=== PATIENT | male | born 1955 | race Caucasian/White ===

== ENCOUNTER 2024-10-09 05:53 | Day surgery (SDC) | payer MEDICARE, SELFPAY ==
[2024-10-03 07:28] VITALS: BMI 31.6
[2024-10-09] VITALS (17 sets, daily range): BP systolic 108–173; BP diastolic 73–151; PULSE 80–95; RESP 12–17; TEMP 36.1–36.5; O2SAT 92–98; BMI 31.6
--- NOTE | 2024-10-09 06:00 | DI.RAD.S_ITS ---
PROCEDURE: XR KNEE RT 1TO2V INDICATIONS: TKA TECHNIQUE: 2 view(s) of the knee acquired. [facility], XR KNEE ARTHRITIC SERIES BI, 09/19/2024, 9:18. FINDINGS: Bones: Expected postsurgical appearance of the knee arthroplasty. Soft tissues: Soft tissue swelling and edema. Patellar enthesopathy. Vascular calcifications IMPRESSION: Expected post-operative appearance of a knee arthroplasty. Dictated by: Luis You M.D. on 10/09/2024 at 12:52 Approved by: Luis You M.D. on 10/09/2024 at 12:53
[2024-10-09] MEDS: ACETAMINOPHEN 325 MG TABLET 975 MG PO (07:23)
[2024-10-09] MEDS: VANCOMYCIN 1,000 MG/200 ML PIGGYBACK 200 MG IV (07:23)
[2024-10-09] MEDS: CELECOXIB 200 MG CAPSULE 400 MG PO (07:23)
[2024-10-09] MEDS: LACTATED RINGERS 1,000 ML 42 ML IV ×2 (07:24→09:51)
--- NOTE | 2024-10-09 07:28 | PM.PREOP ---
Pre-operative Note Interval Note History & Physical reviewed/Exam performed by Physician: Yes Changes to H&P: No
[2024-10-09] MEDS: CEFAZOLIN 2 GM/100 ML PREMIX 100 ML IV ×2 (08:05→14:45)
[2024-10-09] MEDS: TRANEXAMIC ACID 1,000 MG VIAL 1000 MG INJ ×2 (08:14→10:07)
[2024-10-09] MEDS: BUPIVACAINE LIPOSOME 266 MG/20 ML VIAL INJ (08:31)
[2024-10-09] MEDS: BUPIVACAINE 0.25% W/ EPI 30 ML VIAL 60 ML INJ (08:49)
--- NOTE | 2024-10-09 10:47 | PM.OP.1 ---
Operative Date/Time/Diagnoses Date of procedure: 10/09/24 Time of procedure: 08:00 Pre-op diagnosis: Right knee OA Post-op diagnosis: same Procedure & Clinicians Procedure: Right total knee arthroplasty Same procedure as scheduled: Yes Indications: The patient has had progressively worsening right knee pain with radiographic changes consistent with arthritis. Non-operative management has failed and the patient has requested total knee replacement. The risks, benefits and alternatives to surgery were discussed with the patient prior to proceeding. Risks discussed included, but were not limited to, failure to relieve pain, stiffness, infection, nerve damage, deep venous thrombosis, pulmonary embolism, stroke, coma, heart attack, permanent paralysis and , as well as the potential need for eventual revision of the prosthetic. Surgeon: Jessica Miranda Cost Control Specialist: Kimberlee Duncan Anesthesia Type: General, Spinal and Peripheral nerve block Operative Notes Findings: Severe right knee osteoarthritis, adequate stability, adequate bone Closure Type: primary Specimen(s): none sent Prosthetic devices, grafts, tissues, transplants, or devices: Miranda and nephew alfred BCs us to size 8 femur, size 8 tibia, 38 mm oval patella, size 9 poly Estimated Blood Loss (mL): 250 Blood products transfused: none Tourniquet time (min): 106 Procedure in detail: The patient was seen in the pre-operative area, where the patient identified the right knee as the operative site and this was marked with my initials. The patient received pre-operative antibiotics, and was taken to the operating room and placed on the operative table in the supine position. After satisfactory anesthesia, a time analysis clerk out was performed. The right leg was encircled with a tourniquet about the proximal thigh, and the leg was prepared from the toes to the tourniquet with ChloroPrep in the usual fashion and draped through sterile drapes. The leg was elevated and exsanguinated with Eschmark bandage and the tourniquet inflated to [250] mmHg pressure. A PA was used during this procedure was essential for intraoperative retraction safe implantation of the components. The knee was approached through an approximately 18 cm incision centered over the patella and carried into the knee through a medial parapatellar arthrotomy. A portion of the medial and lateral meniscus was resected. Soft tissue was carefully mobilized around the patella the patella was measured with a caliper. Bone was resected from the patella and the patellar height was reconstituted with up an appropriate sized patellar component. A cover was then placed on the patella. A small amount of additional medial and lateral meniscus was resected. The patient was seen in the pre-operative area, where the patient identified the right knee as the operative site and this was marked with my initials. The patient received pre-operative antibiotics, and was taken to the operating room and placed on the operative table in the supine position. After satisfactory anesthesia, a time analysis clerk out? was performed. The right leg was encircled with a tourniquet about the proximal thigh, and the leg was prepared from the toes to the tourniquet with ChloroPrep in the usual fashion and draped through sterile drapes. The leg was elevated and exsanguinated with Eschmark bandage and the tourniquet inflated to [250] mmHg pressure. Albert pins were placed for navigation on the femur. The adjustable tibial guide for navigation was placed. A plan was carefully taken and optimize to allow full motion and good stability throughout full range motion. The Cori robotic bur was used for the distal femoral resection. It looked like an appropriate distal femoral cut and the cut was made without difficulty. The rotation was assessed and the appropriate size femoral guide was placed on the distal femur and finishing cuts were made. There was no evidence of notching. The anterior, posterior and chamfer cuts were then made. The posterior osteophytes and soft tissues were then removed. The posterior capsule was injected with part of a mixture of 60 ml 0.25% Marcaine mixed with 266 mG Exparel for post operative pain control. The remainder of this mixture was injected into the capsule and subcutaneous tissues during cement curing. The tibial guide was meticulously navigated with robotic technique. A proximal tibial cut was made without difficulty. The rotation was assessed. The patient was placed in extension residual medial and lateral meniscus as well as any residual bone was carefully resected. [No] additional tibia was resected. Hemostasis was achieved especially posteriorly. Additional local was injected into the posterior capsule. The extension gap was assessed. The femoral component was trial was placed and the notch was finished. Trial tibial and femoral components were then placed and the knee placed through a range of motion. Range of motion was [0-130], with good stability throughout the range. The trials were then removed, and the tibia was finished. The bone was prepared with pulsatile lavage, and dried with a sponge. Cement was applied and the final prosthetics placed. Excess cement was removed during and after cement curing. A brief Betadine soak was performed. After confirming there was no extruded cement posteriorly, the final tibial insert was placed. The knee was copiously irrigated and the tourniquet deflated. Hemostasis was obtained with the Bovie cautery. The capsule was closed with interrupted # 1 Vicryl suture. The subcutaneous layer was closed with barbed sutures, and the skin with a running 3-0 V-Lock suture and Surgical glue. An Aquacel Ag dressing was applied and the patient was taken to recovery having tolerated the procedure well. Complications: none Post-operative Condition: stable Disposition: Acute Care Plan for aftercare: The patient will be maintained on a standard total knee replacement protocol with weight bearing as tolerated. The patient will receive aspirin and sequential compression devices for DVT prophylaxis. The patient will be discharged home when safe for the home environment.
[2024-10-09] MEDS: LACTATED RINGERS 1,000 ML 100 ML IV ×2 (12:55→14:45)
--- NOTE | 2024-10-09 13:34 | PT.IIE ---
Current Diagnoses Unilateral primary osteoarthritis, right knee (10/09/24) Surgery Performed Operation Date: 10/09/24 07:45 Actual Procedures p Total Knee Arthroplasty - Robot(Right) - Jessica Miranda MD Surgical History (Last Updated 10/03/24 @ 07:44 by Cheri Kimbrough, RN) History of colonoscopy (11/12/19) History of esophagogastroduodenoscopy (EGD) (07/21/20) History of orthopedic surgery (02/2018) Hx of cardiac cath (04/04/24) Hx of cardiac cath (06/2014) Medical History (Last Updated 10/03/24 @ 07:44 by Cheri Kimbrough, RN) Amputation toe (10/06/22) Atherosclerotic heart disease Diabetes HLD (hyperlipidemia) HTN (hypertension) Myocardial infarct Neuropathy PAD (peripheral artery disease) Retinopathy Rheumatoid arthritis Vertigo, intermittent Physical Therapy Inpatient Evaluation/Re-Eval M1 PT/OT-IP Prior Functional Status Start: 10/09/24 12:56 Freq: NEEDED Status: Active Protocol: Document 10/09/24 12:56 MB (Rec: 10/09/24 13:33 MB [id number]) Medical Review Prior Functional Status Medical History Reviewed Yes Diet/Fluid Consistency Regular Communication WNLs Mobility and Gait I, works doing ground maintenance Activities of Daily Living and IADL's I Social History Household Members spouse Living Arrangements House Number of Floors (Floors) Two Floors Number of Stairs To Enter/Railing? 3 steps with B rails to enter Home Environment Standard Height Toilet,Walk in Shower Home Equipment Hand Held Shower Employment Status Self-Employed Additional Social History Comment Upright walker History of B peripheral neuropathy, left great toe amputation M2 PT-IP Current Condition Start: 10/09/24 12:56 Freq: NEEDED Status: Active Protocol: Document 10/09/24 12:56 MB (Rec: 10/09/24 13:33 MB [id number]) Physical Therapy Current Condition Current Condition Evaluation Date 10/09/24 Treatment Diagnosis R TKA M3 PT-IP Subjective Start: 10/09/24 12:56 Freq: NEEDED Status: Active Protocol: Document 10/09/24 12:56 MB (Rec: 10/09/24 13:33 MB [id number]) Subjective Physical Therapy Visit Type Type Initial Evaluation Visit Start Time 12:56 Visit Stop Time 13:19 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 Pt has OPPT set up for one week from today. Therapy Pain Assessment Pain When Pain Assessed At Rest Pain Present Pain Present Pain Reported Location Right knee Intensity 5 Scale Used Numeric (0 - 10) M4 PT-IP Mobility and Gait Start: 10/09/24 12:56 Freq: NEEDED Status: Active Protocol: Document 10/09/24 12:56 MB (Rec: 10/09/24 13:33 MB [id number]) PT-Bed Mobility Assessment Rolling Type of Rolling Roll to Right,Roll to Left Level of Assist Contact Guard Assistance,1 Person Assistance Supine to Sit Supine to Sit Contact Guard Assistance,1 Person Assistance,Head of Bed Elevated,Bedrails Sit to Supine Sit to Supine Contact Guard Assistance,1 Person Assistance Scooting Scooting to Edge of Bed Contact Guard Assistance PT-Transfer Assessment Sit to and From Stand Sit to and from Stand Moderate Assistance,1 Person Assistance,Use of Upper Extremities Equipment Transfer Assistive Device Gait Belt,Front Wheeled Walker Orthotic/Prosthetic Devices or Brace: No Transfers Transfer Destination Bed Transfer Technique Right side step Transfer Ability Level of Assist Moderate Assistance,1 Person Assistance,Use of Upper Extremities Comments Mobility Comments Right leg mildly seth, is not reliable when standing first attempt and pt eases WB onto the leg. BP and HR left UE: hook lying 122/84, 91; standing 105/74 (HR does stay on monitor); standing 1' 119/ 83, 102 Gait Assessment Gait Gait Assistance Required: Moderate Assistance Distance (Feet) 2 Able to Maintain Weight Bearing Status Yes During Gait Assistive Devices Assistive Device Gait Belt,Front Wheeled Walker Orthotic/Prosthetic Devices or Brace: No Gait Deviations General Gait Pattern Antalgic,Decreased Stride Length,Decreased Feet Clearance,Flexed Trunk,Step-to Gait,Wide Based Gait Factors Limiting Gait Function Factors Limiting Gait Function Decreased Activity Tolerance, Decreased Sensation,Decreased Strength,Difficulty Following Directions,Incoordination, Limited Range of Motion,Pain, Poor Balance,Poor Safety Awareness Comments Gait Comments 4 right side steps and 2 forward steps and 2 backwards steps with cues for step-to given right LE unreliable and mod A PT-Balance Assessment Sitting Balance and Reactions Static Sitting Balance Ability Good Dynamic Sitting Balance Ability Fair Standing Balance and Reactions Static Standing Balance Ability Poor Dynamic Standing Balance Ability Poor Device Used RW M5 PT-IP Objective Assessments Start: 10/09/24 12:56 Freq: NEEDED Status: Active Protocol: Document 10/09/24 12:56 MB (Rec: 10/09/24 13:33 [id number]) Orientation Orientation/Cognition Level of Alertness Lethargic Orientation Name,Age,Birthday,Month,Date, Year,Day of Week,Place, Situation Language Function Ability No Deficits Noted Safety Awareness Decreased Safety Awareness Memory Description No Deficits Noted Gross Range of Motion Upper Extremity ROM Assessment Within Functional Limits Lower Extremity ROM Assessment Right Impaired Impairments Right knee extension lacks 10 deg with LAQ sitting EOB Strength Lower Extremity Strength Assessment Right Impaired Comments Strength Comments Pt does not have good sensation in B LEs and trouble with sensory and MMT post-op, right knee appears to be 2+ to 3-/5 with LAQ Coordination Assessment Gross Coordination Gross Coordination Impaired Sensation Assessment Sensation Gross Sensation Right LE Impaired,Left LE Impaired M6 PT-IP Treatment Start: 10/09/24 12:56 Freq: NEEDED Status: Active Protocol: Document 10/09/24 12:56 MB (Rec: 10/09/24 13:33 [id number]) Physical Therapy Treatment Exercises Exercises Ankle Pumps,Gluteal Sets,Quad Sets,Heel Slides Education Education Provided Precautions,Weight Bearing Status,Post-Op Packet,Safety Other Treatments Other Treatment Performed Demo progression to normal gait with walker and to work on normalizing gait with RW over the next week and can advance further with OPPT M7 PT-IP Assessment and Plan Start: 10/09/24 12:56 Freq: NEEDED Status: Active Protocol: Document 10/09/24 12:56 MB (Rec: 10/09/24 13:33 [id number]) PT Summary Assessment and Plan Potential Rehabilitation Potential Good Status of Condition at Evaluation Evolving Summary Impairments Pain,ROM,Strength,Balance, Coordination,Sensation,Bed Mobility,Transfers,Gait, Activity Tolerance Progress Towards Goals Progressing Toward Goals Assessment Summary Pt is a 68 y/o male same day right TKR. Pt presents with some lethargy on assessment. He states he cannot tell if he has sensation or not in his legs given baseline diabetic neuropathy. He has history of left partial great toe amputation. He has active right knee extension sitting EOB and grossly 2+ to 3-/5 strength in right knee extensors in sitting. Left knee is normal as far as knee extension. Upon standing, the right leg does tend to buckle. Limited stepping as a result and pt requires mod A for transfer and stepping. His systolic BP drops 17 mmHg hook lying to standing. Encouraged pt to take a nap and can try PT again later this afternoon. He hopes to go home today but he will need to be more I and safe to be managed safely by and he has 3 steps with B rails to enter. Goals Bed Mobility Goal Independent Transfer Goal Independent,Front Wheeled Walker Gait Goal Independent,Front Wheel Walker Gait Distance 100 Other Goals Pt will ascend and descend 3 steps with B rails and no more than CGA to allow safe home entrance. Days to Meet Goals 3 Frequency of Treatment Frequency Of Treatment Twice a Day Other frequency x1-2 Treatment Plan Physical Therapy Treatment Plan Bed Mobility Training,Transfer Training,Gait Training, Therapeutic Exercise,Balance Retraining,Post Op Education, Discharge Planning,Hot or Cold Pack,Neuromuscular Re-ed, Coordination Retraining,Manual Therapy Other Recommendations and Next Treatment Progress gait and try steps Focus Weight Bearing Status Weight Bearing Status Weight Bear as Tolerated Recommendations To Nursing Amount of Assist Needed 2 Person Assist Discharge Recommendations PT Discharge Recommendations Home with 26/03 Assist Available,Outpatient PT Transportation Needs at Discharge Private Vehicle
[2024-10-09 14:25] LABS: Hematocrit 43.8 % (41-53); Hemoglobin 14.3 g/dL (13.5-17.5)
[2024-10-09] MEDS: ACETAMINOPHEN 325 MG TABLET 650 MG PO (14:52)
[2024-10-09] MEDS: OXYCODONE IR 5 MG TABLET PO (14:52)
--- NOTE | 2024-10-09 15:25 | OT.IP.EVAL ---
Current Diagnoses Unilateral primary osteoarthritis, right knee (10/09/24) Surgery Performed Operation Date: 10/09/24 07:45 Actual Procedures p Total Knee Arthroplasty - Robot(Right) - Jessica Miranda MD Past Medical History (Last Updated 10/03/24 @ 07:44 by Cheri Kimbrough, RN) Amputation toe (10/06/22) Atherosclerotic heart disease Diabetes HLD (hyperlipidemia) HTN (hypertension) Myocardial infarct Neuropathy PAD (peripheral artery disease) Retinopathy Rheumatoid arthritis Vertigo, intermittent Surgical History (Last Updated 10/03/24 @ 07:44 by Cheri Kimbrough, RN) History of colonoscopy (11/12/19) History of esophagogastroduodenoscopy (EGD) (07/21/20) History of orthopedic surgery (02/2018) Hx of cardiac cath (04/04/24) Hx of cardiac cath (06/2014) Occupational Therapy Inpatient Evaluation/Re-Eval M1 PT/OT-IP Prior Functional Status Start: 10/09/24 12:56 Freq: NEEDED Status: Active Protocol: Document 10/09/24 15:36 [facility] (Rec: 10/09/24 15:50 [facility] [id number]) Medical Review Prior Functional Status Medical History Reviewed Yes Diet/Fluid Consistency Regular Communication WNLs Mobility and Gait I, works doing ground maintenance Activities of Daily Living and IADL's I Social History Household Members spouse Living Arrangements House Number of Floors (Floors) Two Floors Number of Stairs To Enter/Railing? 3 steps with B rails to enter Home Environment Standard Height Toilet,Walk in Shower Home Equipment Hand Held Shower Employment Status Self-Employed Additional Social History Comment Upright walker History of B peripheral neuropathy, left great toe amputation M2 OT-IP Current Condition Start: 10/09/24 15:36 Freq: Status: Active Protocol: Document 10/09/24 15:36 [facility] (Rec: 10/09/24 15:50 [facility] [id number]) Occupational Therapy Current Condition Current Condition Evaluation Date 10/09/24 Treatment Diagnosis S/P R TKA Diagnosis Onset Date 10/09/24 Weight Bearing Status Weight Bearing Status Weight Bear as Tolerated M3 OT- IP Subjective and Pain Start: 10/09/24 15:36 Freq: Status: Active Protocol: Document 10/09/24 15:36 [facility] (Rec: 10/09/24 15:50 [facility] [id number]) OT- Subjective Occupational Therapy Visit Type Type Initial Evaluation Visit Start Time 14:50 Visit Stop Time 15:25 Occupational Therapy Visit Comments Patient Comments Pt agreed to get up and get dressed. Patient/Caregiver Goals TO go home. OT Pain Assessment Pain When Pain Assessed At Rest Pain Present Pain Present Denied Pain M4 OT- IP ADL's Start: 10/09/24 15:36 Freq: Status: Active Protocol: Document 10/09/24 15:36 [facility] (Rec: 10/09/24 15:50 [facility] [id number]) OT [id number] Comments OT Self-Feeding Comments Not at meal time. OT ADL-Grooming Comments OT Grooming Comments NO issues anticipated. OT ADL-Dressing General Eval Upper Body Dressing Ability Independent Lower Body Dressing Ability Minimal Assistance Comments OT Dressing Comments Educated to dress the RLE first and take out last. OT ADL-Toileting Comments OT Toileting Comments Suggested to use the urinal if needed or ask his to be present to assist. Pt states to sleep in the recliner initially. OT ADL-Bathing Comments OT Bathing Comments Suggested to get a shower chair. M5 OT- IP IADL's Start: 10/09/24 15:36 Freq: Status: Active Protocol: Document 10/09/24 15:36 [facility] (Rec: 10/09/24 15:50 [facility] [id number]) OT-Instrumental Activities of Daily Living Home Safety Awareness Awareness of Need for Assistance at Home Good Awareness Ability to Problem Solve Emergency Able to Problem Solve Situations Medication Management Medication Management No Deficits Identified Money Management Money Management No Deficits Identified Meal Preparation Meal Preparation Comments Pt's to assist. 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 M6 OT- IP Functional Cognition Start: 10/09/24 15:36 Freq: Status: Active Protocol: Document 10/09/24 15:36 [facility] (Rec: 10/09/24 15:50 [facility] [id number]) Cognitive Factors Limiting Selfcare Function Cognitive Ability Level of Alertness Alert Patient Orientation Name,Age,Birthday,Month,Date, Year,Day of Week,Place, Situation Attention Span Ability Capable of Focused Attention, Capable of Sustained Attention Ability to Follow Commands Able to Follow One Step Commands Cognitive Comments Cognitive Assessment Comments Pt able to follow commands for ADL and mobility needs. OT- Vision and Hearing OT- Hearing Assessment OT- Hearing Assessment WFL OT- Vision Assessment Visual Acuity Glasses All The Time Visual Attentiveness WFL Occular Pursuits WFL M7 OT- IP Mobility and Balance Start: 10/09/24 15:36 Freq: Status: Active Protocol: Document 10/09/24 15:36 [facility] (Rec: 10/09/24 15:50 [facility] [id number]) OT- Bed Mobility Assessment Supine to Sit Supine to Sit Assist Standby Assistance Sit to Supine Sit to Supine Assist Standby Assistance OT-Transfer Assessment Sit to and From Stand Sit to and from Stand Minimal Assistance Transfers Transfer Ability Minimal Assistance Technique Transfer Destination Bed,Chair Transfer Technique Stand Step Pivot Devices Transfer Assistive Devices Gait Belt,Front Wheeled Walker Comments Mobility Comments SBA for bed mobility and MADI to stand to the FWW. MADI and vc to tighten his right quads . Pt's able to assist pt for transfer needs and able to walk to the bathroom and then to the recliner. BP supine 114 /77, sitting 124/73, standing 121/80 OT- Balance Assessment Sitting Balance and Reactions Static Sitting Balance Ability Normal Dynamic Sitting Balance Ability Normal Standing Balance and Reactions Static Standing Balance Ability Good Dynamic Standing Balance Ability Fair M8 OT- IP Objective Assessments Start: 10/09/24 15:36 Freq: Status: Active Protocol: Document 10/09/24 15:36 [facility] (Rec: 10/09/24 15:50 [facility] [id number]) OT Gross Range of Motion Upper Extremity Range of Motion Assessment Within Functional Limits OT Strength Upper Extremity Strength Assessment Within Functional Limits M9 OT- IP Assessment and Plan Start: 10/09/24 15:36 Freq: Status: Active Protocol: Document 10/09/24 15:36 [facility] (Rec: 10/09/24 15:50 [facility] [id number]) OT Summary Assessment and Plan Potential Rehabilitation Potential Excellent Analytic Complexity at Evaluation Low Summary OT Impairments Pain,Strength,Balance, Functional Mobility,Dressing, Toileting,Bathing,Toilet Transfers,Shower Transfers Progress Towards Goals Progressing Toward Goals Assessment Summary Pt low complexity and main barriers are steps and still a little weakness from just having surgery this morning. Pt to go home with to assist and have outpt PT. Goals Grooming Goal Independent Dressing Goal Minimal Assistance Toileting Goal Independent Bathing Goal Standby Assistance Toilet Transfer Goal Independent Shower Transfer Goal Contact Guard Assistance Days to Meet Goals 2 Frequency of Treatment Frequency Of Treatment Once a Day Treatment Plan OT Treatment Plan ADL Training,Functional Mobility,Patient/Family Education,Discharge Planning Discharge Recommendations OT Discharge Recommendations Home with Assistance, Outpatient PT Home Equipment Needs shower chair Transportation Needs at Discharge Private Vehicle
--- NOTE | 2024-10-09 15:50 | PT.IPTN ---
Current Diagnoses Unilateral primary osteoarthritis, right knee (10/09/24) Surgery Performed Operation Date: 10/09/24 07:45 Actual Procedures p Total Knee Arthroplasty - Robot(Right) - Jessica Miranda MD Physical Therapy Treatment Note M2 PT-IP Current Condition Start: 10/09/24 12:56 Freq: NEEDED Status: Active Protocol: Document 10/09/24 12:56 MB (Rec: 10/09/24 13:33 MB [id number]) Physical Therapy Current Condition Current Condition Evaluation Date 10/09/24 Treatment Diagnosis R TKA M3 PT-IP Subjective Start: 10/09/24 12:56 Freq: NEEDED Status: Active Protocol: Document 10/09/24 15:25 NM (Rec: 10/09/24 16:16 NM [id number]) Subjective Physical Therapy Visit Type Type Treatment Note Visit Start Time 15:25 Visit Stop Time 15:50 Physical Therapy Visit Comments Patient Comments Pt agrees to participate in PT this afternoon. present, OT present in room. Pt ambulating with OT and , attempting to go to restroom. BP 121/84 mmHg Therapy Pain Assessment Pain When Pain Assessed During Mobility Pain Present Pain Present Pain Reported Location Right knee Intensity 2 Scale Used Numeric (0 - 10) M4 PT-IP Mobility and Gait Start: 10/09/24 12:56 Freq: NEEDED Status: Active Protocol: Document 10/09/24 15:25 NM (Rec: 10/09/24 16:16 NM [id number]) PT-Transfer Assessment Sit to and From Stand Sit to and from Stand Contact Guard Assistance,1 Person Assistance,Use of Upper Extremities Equipment Transfer Assistive Device Gait Belt,Front Wheeled Walker Orthotic/Prosthetic Devices or Brace: No Comments Mobility Comments At start of PT session, pt transferred to chair with CGA from using FWW and gait belt, poorly controlled descent into chair with RLE extended and BUE assist. Transfers from sitting > standing using CGA to steady, max BUE assist from chair to FWW. Gait Assessment Gait Gait Assistance Required: Contact Guard Assist,1 Person Assist Distance (Feet) 300 Able to Maintain Weight Bearing Status Yes During Gait Assistive Devices Assistive Device Gait Belt,Front Wheeled Walker Orthotic/Prosthetic Devices or Brace: No Gait Deviations General Gait Pattern Antalgic,Decreased Stride Length,Decreased Feet Clearance,Flexed Trunk,Step-to Gait,Wide Based Gait Factors Limiting Gait Function Factors Limiting Gait Function Decreased Activity Tolerance, Decreased Sensation,Decreased Strength,Difficulty Following Directions,Incoordination, Limited Range of Motion,Pain, Poor Balance,Poor Safety Awareness Comments Gait Comments Pt ambulated with FWW x150 ft and CGA to steady intermittently from room to stairs. CGA to cue for safety initially with FWW to maintain knee ext, close wheelchair follow in case pt fatigue. Cued to push BUE into FWW to offload knee, demos step-to pattern. Pt then performed 2 sets of 3 stairs with CGA before ambulating x 150 ft with CGA and FWW back to room. No seated rest breaks. Pt left sitting in chair with legs elevated, ice on leg, and call light within reach. RN alerted, present. Requires increased time. Pt and educated for pt not to get up without assist. Stair Climbing Assessment Evaluation Level of Assist On Stairs Contact Guard Assistance,1 Person Assistance Devices Stair Climbing Assistive Devices Left Railing,Right Railing Technique/Endurance Stair Climbing Direction Ascend and Descend Stair Climbing Technique Step to Step Number of Steps Climbed 3 Stair Climbing Set # Repetitions (reps) 2 Comments Stair Climbing Comments Pt ascended and descended 2 sets of 3 stairs using B rail assist, step-to pattern, and CGA. Cueing needed for correct sequencing during set up. LLE demos poor flexion ROM, limits pt control with descent unless UE assist. First set assisted by PT, 2nd set assisted by pt with PT close supervision and cueing. PT-Balance Assessment Sitting Balance and Reactions Static Sitting Balance Ability Good Dynamic Sitting Balance Ability Good Standing Balance and Reactions Static Standing Balance Ability Good Dynamic Standing Balance Ability Good Device Used FWW M5 PT-IP Objective Assessments Start: 10/09/24 12:56 Freq: NEEDED Status: Active Protocol: Document 10/09/24 15:25 NM (Rec: 10/09/24 16:16 NM [id number]) Orientation Orientation/Cognition Level of Alertness Alert Orientation Name,Age,Birthday,Month,Date, Year,Day of Week,Place, Situation Language Function Ability No Deficits Noted Safety Awareness Understands Safety Issues Memory Description No Deficits Noted Gross Range of Motion Upper Extremity ROM Assessment Within Functional Limits Lower Extremity ROM Assessment Right Impaired Impairments Right knee extension lacks 10 deg with LAQ sitting EOB Strength Lower Extremity Strength Assessment Right Impaired Comments Strength Comments Pt does not have good sensation in B LEs and trouble with sensory and MMT post-op, right knee appears to be 2+ to 3-/5 with LAQ Coordination Assessment Gross Coordination Gross Coordination Impaired Sensation Assessment Sensation Gross Sensation Right LE Impaired,Left LE Impaired M6 PT-IP Treatment Start: 10/09/24 12:56 Freq: NEEDED Status: Active Protocol: Document 10/09/24 15:25 NM (Rec: 10/09/24 16:16 NM [id number]) Physical Therapy Treatment Education Education Provided Precautions,Weight Bearing Status,Post-Op Packet,Safety Other Treatments Other Treatment Performed Brief education on exercises and positioning for sleeping/ sitting in chair for knee elevation but not with sustained knee flexion M7 PT-IP Assessment and Plan Start: 10/09/24 12:56 Freq: NEEDED Status: Active Protocol: Document 10/09/24 15:25 NM (Rec: 10/09/24 16:16 NM [id number]) PT Summary Assessment and Plan Potential Rehabilitation Potential Good Status of Condition at Evaluation Stable Summary Impairments Pain,ROM,Strength,Balance, Coordination,Sensation,Bed Mobility,Transfers,Gait, Activity Tolerance Progress Towards Goals Progressing Toward Goals Assessment Summary Pt is a 68 y.o. male s/p R TKA on 10/09/24. Pt ambulated x300 ft with FWW and CGAx1 using step-to pattern. CGAx1 for sit to stand transfers and transfers to chair. Pt performed 6 stairs with CGAx1 and B rail assist; cueing needed for correct execution and safety initially. Decreased control with descent due to limitations in ROM and strength on L knee. Pt and educated on safety, positioning, and exercises. Recommend discharge to home with family assist, FWW, and OPPT when medically appropriate. Goals Bed Mobility Goal Independent Transfer Goal Independent,Front Wheeled Walker Gait Goal Independent,Front Wheel Walker Gait Distance 100 Other Goals Pt will ascend and descend 3 steps with B rails and no more than CGA to allow safe home entrance. Days to Meet Goals 3 Frequency of Treatment Frequency Of Treatment Twice a Day Other frequency x1-2 Treatment Plan Physical Therapy Treatment Plan Bed Mobility Training,Transfer Training,Gait Training, Therapeutic Exercise,Balance Retraining,Post Op Education, Discharge Planning,Hot or Cold Pack,Neuromuscular Re-ed, Coordination Retraining,Manual Therapy Other Recommendations and Next Treatment Progress gait and retry stairs Focus if stay overnight Recommendations To Nursing Amount of Assist Needed 1 Person Assist Discharge Recommendations PT Discharge Recommendations Home with / Assist Available,Outpatient PT Transportation Needs at Discharge Private Vehicle
== END 2024-10-09 17:00 | disposition home or self-care (01) ==
LOC: OR 05:55 → AC 05:57
PROVIDERS: Physician Assistant; PCP Nurse Practitioner Family; Referring Provider Orthopaedic Surgery; Visit Provider Orthopaedic Surgery
PROC: 0SRC0JZ Replacement of Right Knee Joint with Synthetic Substitute, Open Approach (ICD-10-PCS; CPT 27447; principal; 2024-10-09 07:45)
DX: M17.11 Unilateral primary osteoarthritis, right knee (principal); E11.9 Type 2 diabetes mellitus without complications; I10 Essential (primary) hypertension; E78.5 Hyperlipidemia, unspecified; I25.2 Old myocardial infarction; Z79.4 Long term (current) use of insulin; Z87.891 Personal history of nicotine dependence; Z79.84 Long term (current) use of oral hypoglycemic drugs; M25.761 Osteophyte, right knee; G89.18 Other acute postprocedural pain
CPT/HCPCS: 27447; 20985; 64450; 73560; 85014; 85018; 97116; 97161; 97165; 97530; 97535; C1776; C1713; J0666; J0690; J1100; J2250; J2405; J2704; J3010